=== PATIENT | female | born 1990 | race Caucasian/White ===

== ENCOUNTER 2022-05-13 18:17 | Emergency (ER) | payer OTHER ==
[~2022-05-13] VITALS: Ht 182.9 cm; Wt 95.4 kg
[2022-05-13] MEDS ORDERED: BUPROPION XL150 MG PO (18:33)
[2022-05-13] MEDS ORDERED: DICLOFENAC SODI75 MG PO (18:33)
[2022-05-13] MEDS ORDERED: HYDROCODON-ACE1 EA10 PO (18:33)
[2022-05-13] MEDS ORDERED: CYCLOBENZAPRINE10 MG PO (20:59)
== END 2022-05-13 21:13 | disposition home or self-care (01) ==
LOC: ED 18:17
DX: S39.012A Strain of muscle, fascia and tendon of lower back, initial encounter (principal); S16.1XXA Strain of muscle, fascia and tendon at neck level, initial encounter; S29.012A Strain of muscle and tendon of back wall of thorax, initial encounter; V43.52XA Car driver injured in collision with other type car in traffic accident, initial encounter; Z88.8 Allergy status to other drugs, medicaments and biological substances; Z91.030 Bee allergy status; Z79.899 Other long term (current) drug therapy
CPT/HCPCS: 72040; 72070; 72100; 84703; 96372; 99284-25; J1885

== ENCOUNTER 2024-06-16 05:33 | Day surgery (SDC) | payer OTHER ==
[~2024-06-16] VITALS: Ht 175.3 cm; Wt 104.5 kg
[~2024-06-16 05:33] MED LIST: BUPROPION XL150 MG PO; CYCLOBENZAPRINE10 MG PO; DICLOFENAC SODI75 MG PO; HYDROCODON-ACE1 EA10 PO; LACTATED RINGER'S 1,000 ML IV SCH; LEXAPRO20 MG PO; VIT D2-K1 20-1259 ML PO
[2024-06-16 06:01] VITALS: BP 124/86
[2024-06-16] MEDS ORDERED: [UNRECOGNIZED DRUG - OTHER] PO (06:10)
[2024-06-16] MEDS ORDERED: propofoL 200 MG/20 ML VIAL ONE (06:43)
[2024-06-16] MEDS ORDERED: Ropivacaine HCl 0.5% 30 ML VIAL ONE (06:46)
[2024-06-16] MEDS ORDERED: DEXAMETHASONE SOD PHOS 4 MG/ML VIAL ONE ×2 (06:46→07:46)
[2024-06-16] MEDS ORDERED: LIDOCAINE HCL 2% 5 ML SDV ONE (06:46)
[2024-06-16] MEDS ORDERED: dexmedeTOMIDine HCl 200 MCG/2 ML VIAL ONE (06:46)
[2024-06-16] MEDS ORDERED: IBLOOD GLUCOSE TEST STRIP 1 EA TEST VI PRN ×2 (07:00→08:30)
[2024-06-16] MEDS ORDERED: CEFAZOLIN SODIUM 2 GM/20 ML SYR IV SCH (07:00)
[2024-06-16] MEDS ORDERED: LIDOCAINE HCL 1% 5 ML SDV INJ ONE (07:00)
[2024-06-16] MEDS ORDERED: TRANEXAMIC ACID 2,000 MG in SODIUM CHLORIDE 0.9% 100 ML IV SCH (07:00)
[2024-06-16] MEDS ORDERED: ACETAMINOPHEN 1,000 MG/100 ML VIAL ONE (07:45)
[2024-06-16] MEDS ORDERED: ondansetron HCL 4 MG/2 ML VIAL ONE (07:46)
[2024-06-16] MEDS ORDERED: fentaNYL citrate 100 MCG/2 ML VIAL ONE (07:52)
[2024-06-16] MEDS ORDERED: KETOROLAC TROMETHAMINE 15 MG/ML VIAL IV PRN (08:00)
[2024-06-16] MEDS ORDERED: CELECOXIB 200 MG CAP PO SCH (08:00)
[2024-06-16] MEDS ORDERED: HYDROCODONE/ACETA 7.5/325 TAB PO PRN (08:00)
[2024-06-16] MEDS ORDERED: NALOXONE HCL 0.4 MG SYR IV PRN (08:30)
[2024-06-16] MEDS ORDERED: ondansetron HCL 4 MG/2 ML VIAL IV PRN (08:30)
[2024-06-16] MEDS ORDERED: KETOROLAC TROMETHAMINE 30 MG/ML VIAL IV PRN (08:30)
[2024-06-16] MEDS ORDERED: fentaNYL citrate 50 MCG/ML SDV IV PRN (08:30)
[2024-06-16] MEDS ORDERED: CELECOXIB200 MG PO (08:37)
[2024-06-16] MEDS ORDERED: HYDROCODON-ACE1 EA11 PO (08:37)
--- NOTE | 2024-06-16 09:03 | NUR ---
06/16/24 0903 Ayde Gaspar 0838- PT ARRIVES TO PACU RESTING SEMI FOWLERS, VSS ON 6L VIA MASK, REU.PT NO RESPONSIVE TO TACTILE STIMULI. 0845- PT AWAKENS EASILY TO VERBAL STIMULI, DENIES PAIN OR NAUSEA. PT TITRATED TO RA, VS REMAIN STABLE, REU. 0855- CRYO CUFF APPLIED TO RT SHOUDLER PER MD ORDER.
[2024-06-16 09:15] VITALS: BP 118/57
--- NOTE | 2024-06-16 09:37 | NUR ---
0915-PT RETURNED TO DS AAOX3 AND ANSWERING QUESTIONS APPROPRIATELY. VS TAKEN, STABLE. IV SITE ASSESSED, PATENT, AND INFUSING LR PER ORDERS. REPORT RECEIVED FROM SUPERVISOR POWDERED SUGAR AND SURGICAL SITES VISUALIZED WITH COUNTER CUTTER. NOTED 3 LAP SITES TO R SHOULDER AREA, DRSGS CDI. PT WITH SHOULDER SLING AND CRYO CUFF IN PLACE TO RUE WELL. PT REPORTS NUMBNESS/REDUCED SENSATION IN RUE. PT ABLE TO MOVE THUMB AND INDEX FINGER SOME. CMS INTACT TO RUE. PT DENIES PAIN OR NAUSEA WHEN ASKED. PT GIVEN ICE WATER, LEEROY CRACKERS, PUDDING, AND HOT TEA AT HER REQUEST AND IS SITTING IN BED CONSUMING WITH HOB ELEVATED APPROX 45-60 DEGREES. CALL LIGHT AND PERSONAL BELONGINGS WITHIN PT REACH ON L SIDE. BED IN LOW POSITION, WHEELS LOCKED, AND BILAT RAILS IN PLACE FOR SAFETY. GLASSES GIVEN BACK TO PT FROM BAG OF PERSONAL BELONGINGS AT HER REQUEST. ALL QUESTIONS ANSWERED. 0930-PT CONT TO DENY NAUSEA AND IS EATING AND DRINKING WITHOUT ISSUES. IV SL'D AT THIS TIME. PT REQUESTING FRUIT. KITCHEN NOTIFIED WITH REQUEST TO BRING TO DS. DIET ORDER ENTERED. PTS SIG OTHER RETURNED TO PTS ROOM AND IS AT HER BEDSIDE. 0937-SCHEDULED CELEBREX GIVEN PER ORDERS.
[2024-06-16 10:15] VITALS: BP 111/62
--- NOTE | 2024-06-16 10:16 | OR ---
[facility] [address], [place] [address] Signed DATE OF OPERATION: 06/16/2024 SURGEON: Andrew Brown MD PREOPERATIVE DIAGNOSIS: Partial rotator cuff tear, right. POSTOPERATIVE DIAGNOSIS: Partial rotator cuff tear, right. PROCEDURE PERFORMED: Right shoulder arthroscopy with subacromial decompression. MEDICAL SOCIOLOGIST: None. ANESTHESIA: General. BLOOD LOSS: Minimal. BRIEF HISTORY: Attila is a 33-year-old female with pain in her shoulder. She had undergone nonoperative treatment without substantial relief. MRI was consistent with a partial rotator cuff tear. Risks, benefits, and alternatives of surgery were discussed with her and she elected to proceed. Once consent was obtained, she was taken to the operating room. After adequate anesthesia, she was placed in the beach chair position. All downside pressure points were well padded. The shoulder was prepped and draped in a standard sterile fashion. The shoulder was injected with 15 mL 0.25% Marcaine with epinephrine as was the subacromial space. Standard posterior portal was made and the scope was introduced in the shoulder. ARTHROSCOPIC FINDINGS: The glenohumeral surfaces were intact. Biceps, biceps anchor, and labrum were intact. There was no significant synovitis. The undersurface of the rotator cuff showed no significant tears and no significant erythema. The diagnostic arthroscopy was undertaken as noted above. The scope was withdrawn and placed in the subacromial space. There was extensive thickening, fibrosis and inflammation in the bursa. The standard lateral portal was established using a spinal needle. The bursa was then removed using Electronically Signed By: ANDREW BROWN MD 06/16/24 1016 PATIENT NAME: ATTILA ALFONSO OPERATIVE REPORT DATE OF : 89 REPORT #: [id number] PHYSICIAN: ANDREW BROWN MD PCP: SONIDO MERCADO REPORT IS CONFIDENTIAL AND NOT TO BE RELEASED WITHOUT AUTHORIZATION [facility] [address], [place] [address] Signed a combination of the shaver and Mitek VAPR. The superior surface of the rotator cuff showed some minor partial tearing anteriorly. No full-thickness or unstable tears. The undersurface of the acromion was type 1. The bursa was removed to allow good visualization. The shoulder was taken through range of motion and found to be in stable condition. The scope was withdrawn. Portals were closed with 3-0 nylon. The shoulder was injected with 30 mg of Toradol. The wounds were then dressed with Allevyn and OpSite. She tolerated the procedure well. All sponge, needle, and instrument counts were correct. Andrew Brown MD BA/STEFANYL /[id number] Copies: ~ Electronically Signed By: ANDREW BROWN MD 06/16/24 1016 PATIENT NAME: ATTILA ALFONSO OPERATIVE REPORT DATE OF : [birth year] REPORT #: [id number] PHYSICIAN: ANDREW BROWN MD PCP: SONIDO MERCADO REPORT IS CONFIDENTIAL AND NOT TO BE RELEASED WITHOUT AUTHORIZATION
--- NOTE | 2024-06-16 10:37 | NUR ---
1015-INTO PTS ROOM FOR ROUTINE REASSESSMENT. VS TAKEN. IV SITE ASSESSED. SURGICAL SITES VISUALIZED, NO ACUTE CHANGES NOTED FROM INITIAL ASSESSMENT. PT CONT TO DENY PAIN OR NAUSEA WHEN ASKED. CMS TO RUE REMAINS INTACT. PT COMPLIANT WITH USE OF CRYO CUFF TO R SHOULDER AREA AND WITH SLING USE. PT SIG OTHER REMAINS IN ROOM WITH HER AT HER SIDE. PT FEELS IF SHE MAY BE ABLE TO VOID. 1030-PT ASSISTED TO EOB. SLING FITTED TO PT. PT AMBULATED TO RESTROOM INDEPENDANTLY WITH RN SUPERVISION FOR SAFETY. PTS SIG OTHER ASSISTED PT IN RESTROOM WITH PERSONAL HYGIENE AT HER REQUEST. PT ABLE TO VOID APPROX 400 ML OF CLR, YELLOW URINE. PT AMBLATED BACK TO ROOM AND IS SITTING ON EOB WITH SIG OTHER AT SIDE, PERSONAL BELONGINGS AND CALL LIGHT WITHIN REACH. SLING REMOVED AND PT EDUCATED ON NEED TO HOLD HER RUE IN A PROTECTIVE POSITION. WILL ASSIST PT IN REPLACING SLING ONCE DRESSED.
--- NOTE | 2024-06-16 11:00 | NUR ---
1040-INTO PTS ROOM TO ASSIST WITH RE-APPLICATION OF RUE SLING AND SHOW PT AND HER SIG OTHER HOW TO APPLY AND ADJUT TO FIT TO PT. PT AND SIG OTHER PARTICIPATED IN APPLYING SLING AND VERBALIZED UNDERSTANDING. PT PROVIDED WITH DR. FLOYD AFTER HOURS PHONE NUMBER WELL HER F/U APPT ON 06/27/24 AT 1545. PT PROVIDED EDUCATION ON DRESSING, ACTIVITY RESTICTIONS, COLD THERAPY SAFETY, MEDICATIONS, ECT. PT AND SIG OTHER VERBALIZED UNDERSTANDING OF INFORMATION PROVIDED. PT GIVEN DR. FLOYD HANDOUT FOR POST-OP SHOULDER SURGERY. PT ALSO SHOWN HOW TO CHANGE ICE AND EMPTY ICE IN CRYO MACHINE. 1055-PTS SIG OTHER TOOK ALL PERSONAL BELONGINGS NCLUDING CRYO CUFF MACHINE OUT TO CAR AND IS PULLING CAR AROUND TO FRONT OF HOSPITAL. 1100-IV REMOVED, TIP OBSERVED TO BE INTACT. PRESSURE DRSG APPLIED WITH GAUZE AND COBAN.
--- NOTE | 2024-06-16 11:10 | NUR ---
PT DISCHARGED FROM DS VIA WC TO PASSENGER SIDE OF [employer] VEHICLE. ALL PERSONAL BELONGINGS TAKEN WITH PT.
[2024-06-16] MEDS ORDERED: SEVOFLURANE 250 ML BTL INH ONE (11:53)
== END 2024-06-16 11:10 | disposition home or self-care (01) ==
LOC: DS 05:33
PROVIDERS: ATTEND Specialist
PROC: 0RNJ4ZZ Release Right Shoulder Joint, Percutaneous Endoscopic Approach (ICD-10-PCS; principal; 2024-06-16 08:45)
DX: M75.111 Incomplete rotator cuff tear or rupture of right shoulder, not specified as traumatic (principal); G43.909 Migraine, unspecified, not intractable, without status migrainosus; Z88.8 Allergy status to other drugs, medicaments and biological substances
CPT/HCPCS: 01630; 64415; 84703; C1713; J0131; J0690; J1100; J2003; J2405; J2704; J2795; J3010; J7121